=== PATIENT | female | born 1985 ===

== ENCOUNTER 2020-12-12 15:17 | Outpatient (CLI) | payer MEDICAID | END 2020-12-12 15:18 | disposition home or self-care (01) | LOC: SLR 15:17 | PROVIDERS: ATTEND Surgery | DX: G47.30 Sleep apnea, unspecified (principal) | CPT/HCPCS: G0399 ==

== ENCOUNTER → 2021-01-19 | Outpatient (CLI) | payer MEDICAID | END | disposition home or self-care (01) | LOC: SLR 11:00 | PROVIDERS: ATTEND Surgery | DX: G47.30 Sleep apnea, unspecified (principal) | CPT/HCPCS: 95811 ==